=== PATIENT | male | born 1940 | race African-American/Black ===

== ENCOUNTER 2023-04-15 10:53 | Outpatient (CLI) | payer MEDICARE ==
[2023-04-15] MEDS ORDERED: Lidocaine 1% PF 5 ML VIAL ONE ×2 (11:23→11:53)
[2023-04-15] MEDS ORDERED: Sodium Bicarbonate 2.5 MEQ/5 ML VIAL ONE (11:23)
[2023-04-15] MEDS ORDERED: Sodium Chloride 0.9% (PF) 10 ML VIAL ONE (11:53)
[2023-04-15] MEDS ORDERED: Iopamidol 300 61% 30 ML VIAL ONE (11:53)
[2023-04-15] MEDS ORDERED: EPINEPHrine 1 MG/ML AMP ONE (11:53)
== END 2023-04-15 10:54 | disposition home or self-care (01) ==
LOC: CSHRAD 10:53
PROVIDERS: ATTEND Orthopaedic Surgery
DX: M19.011 Primary osteoarthritis, right shoulder (principal); M75.121 Complete rotator cuff tear or rupture of right shoulder, not specified as traumatic; S43.431A Superior glenoid labrum lesion of right shoulder, initial encounter
CPT/HCPCS: 23350; J0171; Q9967